=== PATIENT | male | born 1995 | race Caucasian/White ===

== ENCOUNTER 2018-03-02 08:29 | Emergency (ER) | payer BC ==
[~2018-03-02] VITALS: Ht 195.6 cm; Wt 113.6 kg
[2018-03-02] MEDS ORDERED: EPIPEN 2-PAK1 MG/ML MR (11:31)
[2018-03-02] MEDS ORDERED: DELTASONE20 M1 PO (11:32)
[2018-03-02] MEDS ORDERED: PEPCID 20MG TAB20 MG PO (11:32)
[2018-03-02 11:51] VITALS: BP 123/75
== END 2018-03-02 11:39 | disposition home or self-care (01) ==
LOC: ED 08:29
DX: T78.01XA Anaphylactic reaction due to peanuts, initial encounter (principal); Z91.010 Allergy to peanuts
CPT/HCPCS: J0171; J1200; J2930; J3490; J7030